=== PATIENT | male | born 1970 | race Caucasian/White ===

== ENCOUNTER → 2022-07-21 | Outpatient (CLI) | payer OTHER, SELFPAY ==
[2022-07-21 12:22] LABS: Absolute Lymphocyte Count 1.95 X10^3/uL (0.83-4.51); Absolute Neutrophil Count 2.4 X10^3/uL (2.0-7.7); Basophil# 0.01 X10^3/uL; Basophil% 0.2 % (0-1); Eosinophil# 0.08 X10^3/uL; Eosinophils% 1.6 % (0-5); Hematocrit 45.3 % (40-54); Hemoglobin 14.8 g/dL (13.0-16.5); Lymphocyte # 1.95 X10^3/ul (0.83-4.51); Lymphocyte % 39.2 % (19-41); Mean Corp Hgb Conc 32.7 g/dL (32-36); Mean Corpuscular Hgb 31.6 pg (27.0-32.0); Mean Corpuscular Volume 96.6 fL (80-94); Mean Platelet Vol. 12.4 fl (6.2-12.0); NRBC Flagged by Analyzer 0 % (0-5); Neutrophil # 2.43 X10^3/uL (2.7-7.7); Neutrophil % 48.8 % (47-70); Platelet Count 174 K/mm3 (150-450); RBC Distribution Width CV 13.4 % (11.6-14.6); RBC Distribution Width SD 47.8 fl (35.1-43.9); Red Blood Count 4.69 M/mm3 (4.6-6.2)
[2022-07-21 13:34] LABS: AST(SGOT) 12 U/L (15-37); Alanine Aminotransfer ALT/SGPT 28 U/L (16-61); Albumin, Serum 3.6 g/dL (3.2-5.0); Alkaline Phosphatase 44 U/L (45-117); Anion Gap 4 (5-15); BUN 18 mg/dL (7-18); BUN/Creat Ratio 22.9 RATIO (10-20); Chloride 107 mmol/L (98-107); Cholesterol 192 mg/dL (200); Creatinine, Serum 0.78 mg/dL (0.70-1.30); EST Glomerular Filtration Rate 109 mL/min (>60); Est Glom Filt Rate - Afr Amer 132 mL/min (>60); Globulin 3.6 g/dL (2.2-4.2); Glucose 103 mg/dL (74-106); High Density Lipoprotein 43 mg/dL; PSA,Total - Annual Screen 1.09 ng/mL (0.00-4.00); Potassium 4.5 mmol/L (3.5-5.1); Protein, Total 7.2 g/dL (6.4-8.2); Sodium Level 139 mmol/L (136-145); Triglycerides 96 mg/dL; Very Low Density Lipoprotein 19 mg/dL (5-40)
== END | disposition home or self-care (01) ==
LOC: BFHLAB 09:35
PROVIDERS: PCP Nurse Practitioner Family; Referring Provider Nurse Practitioner Family; Visit Provider Nurse Practitioner Family
DX: Z00.00 Encounter for general adult medical examination without abnormal findings (principal); Z12.5 Encounter for screening for malignant neoplasm of prostate
CPT/HCPCS: 36415; 80053; 80061; 84153; 85025; G0103

== ENCOUNTER → 2022-11-24 | Outpatient (CLI) | payer OTHER, SELFPAY ==
--- NOTE | 2022-11-24 08:51 | VDLE_ITS ---
Reason For Study: Left leg edema RIGHT LEFT CFV is compressible, spontaneous, phasic, GSV is normal. competent and demonstrates normal CFV is compressible, spontaneous, phasic, augmentation. competent, and demonstrates normal Procedure augmentation. This is a venous duplex using B-mode, color FV is compressible, spontaneous, phasic, flow and spectral Doppler. competent and demonstrates normal Exam performed in department. augmentation. A preliminary report was called and/or faxed POP V is compressible, spontaneous, phasic, to Guido FAMILY RESOURCE COORDINATOR-C. competent and demonstrates normal augmentation. T/P Trunk is compressible. PTV is compressible. LT PerV is compressible. Nonvascularized structure noted within the muscle in the popliteal space. VL/Venous Duplex US, Unilateral Interpretation Summary Deep veins of the left lower extremity are patent and compressible segmentally. There is no evidence of left lower extremity deep vein thrombosis. The left great saphenous vein chase ears patent and compressible segmentally. Nonvascularized structure noted within the muscle in the popliteal space. Ordering Physician: Abeba Lora Referring Physician: Abeba Lora Performed By: Catherine Valenzuela RVT
== END | disposition home or self-care (01) ==
PROVIDERS: PCP Nurse Practitioner Family; Referring Provider Nurse Practitioner Family; Visit Provider Nurse Practitioner Family
DX: R60.0 Localized edema (principal)
CPT/HCPCS: 93971

== ENCOUNTER 2023-09-15 08:45 | Day surgery (SDC) | payer OTHER, SELFPAY ==
[2023-09-15] VITALS (7 sets, daily range): BP systolic 118–137; BP diastolic 71–92; PULSE 61–72; RESP 16–20; TEMP 35.8–36.3; O2SAT 67–98; BMI 44.0
--- NOTE | 2023-09-15 08:51 | H&P.OPEN ---
HPI - General General Date of Service: 09/15/23 HPI Narrative MARY CASTILLO, is a 53 M who presents for a screening colonoscopy. Patient never had previous colonoscopy. Patient has bowel movements daily denies any blood. Patient denies any family history of colon cancer. Patient denies any chronic abdominal pain/nausea/vomiting/reflux. PFSH Medical History Non-smoker Home Medications ?Medication ?Instructions ?Recorded ?Last Taken ?Type NK 09/07/23 Unknown History Allergy/AdvReac Type Severity Reaction Status Date / Time No Known Allergies Allergy Verified 09/15/23 09:01 Surgical History History of tooth extraction History of vasectomy Social History household members: spouse current occupational status: employed Smoking Status: Never smoker Past Medical/Surgical History Planned Operation Planned Operative Procedure(s): CSCOPE Previous Hospitalizations/Surgeries HX Hospitalizations: No Any Problems With Anesthesia: No You/Your Family Experience Fever (Hyperthermia) With Anes: No Cholinesterase deficiency: No Cardiovascular Hx Hypertension: No Respiratory Hx Sleep Apnea: No Hx Respiratory Tract Infection/Cold (presently): No Do You Snore Loudly (louder than talking or can be heard): Yes Do You Often Feel Tired/ Fatigued/ Sleepy Dring Daytime?: No Has Anyone Observed You Stop Breathing During Sleep?: Yes Result (for STOP score): Positive Smoking Status: Never smoker Neurological Does patient have nerve stimulator: No Reproduction : No Allergies No Known Allergies Allergy (Verified 09/15/23 09:01) Discharge Is Pt Admitted From a Shelter, or a Nursing Home: No After D/C, Where Do you Plan to Go: Return Home Physical Exam Const alert, oriented x3 and no apparent distress HEENT normocephalic and head/scalp atraumatic Resp normal respiratory effort Cardio regular rate GI soft to palpation and non-tender; Negative for non-distended Palpation: Negative for guarding Extremity no clubbing, cyanosis or edema Skin no rashes or lesions noted Neuro CN's II-XII intact bilaterally Psych mental status grossly normal Assessment & Plan Assessment/Plan (1) Encounter for screening for malignant neoplasm of colon: Surgery Risks - Colonoscopy I discussed with the patient the risks of the procedure: Yes Risks Include but are not Limited To: Risks include but are not limited to: Bleeding, perforation requiring further surgery, inability to complete colonoscopy requiring barium enema.
--- NOTE | 2023-09-15 09:01 | PCM.PRE.AN2 ---
ASA Classification* ASA Classification ASA Classification: 3 Assessment & Plan Anesthesia* Anesthesia Assessment Anesthesia Assessment: Discussed sedation and/or anesthesia options, risks, benefits, and alternatives with patient/parents/legal guardian/POA. Questions invited. The patient/parents/legal guardian/POA seems to understand and agrees to proceed with anesthesia plan. Reviewed the physical assessment, medical history, allergy history and patient home medications list prior to surgery/procedure/anesthetic and documented any changes. Performed airway and anesthesia risk assessments. Anesthesia Type Anesthesia Type: MAC (*see written preanesthesia record for full assessment) Anesthesia Focused Assessment* Airway Assessment Mouth opens: >3 cm Mallampati Score: II Focused Labs Anesthesia Preop lab: CBC WBC 5.0 K/mm3 (4.4-11.0) 07/21/22 09:35 RBC 4.69 M/mm3 (4.6-6.2) 07/21/22 09:35 Hgb 14.8 g/dL (13.0-16.5) 07/21/22 09:35 Hct 45.3 % (40-54) 07/21/22 09:35 Plt Count 174 K/mm3 (150-450) 07/21/22 09:35 CHEMISTRY Potassium 4.5 mmol/L (3.5-5.1) 07/21/22 09:35 Sodium 139 mmol/L (136-145) 07/21/22 09:35 BUN 18 mg/dL (7-18) 07/21/22 09:35 Creatinine 0.78 mg/dL (0.70-1.30) 07/21/22 09:35 Glucose 103 mg/dL (74-106) 07/21/22 09:35 COAG Pre-Assessment Diagnosis/Proposed Procedure Planned Operative Procedure(s): CSCOPE Anesthesia History 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 When Was Last Pacemaker Check QUESTION #4 FULL TEXT: You/Your Family Experience fever (hyperthermia) with Anesthesia Last Oral Intake Last Oral intake: Last Oral Intake NPO since Meds taken in AM with sips of water? Meds patient instructed to take am of surgery PONV PONV - packaging operator: PONV - packaging operator Female No 09/10/23 15:44 HX of Motion Sickness No 09/10/23 15:44 HX of N/V After Surgery No 09/10/23 15:44 Non-Smoker Yes 09/10/23 15:44 Duration of Surgery greater No 09/10/23 15:44 than 60 minutes Number of Risk Factors 1 09/10/23 15:44 PONV Score Low Risk 09/10/23 15:44 Height & Weight Height & Weight: Anesthesia: Height & Weight Height 6 ft 1 in 09/07/23 08:23 Respiratory Assessment Respiratory Assessment - packaging operator: Respiratory Tract Infection Hx - packaging operator Hx Respiratory Tract Infection No 09/15/23 08:52 STOP Sleep Apnea STOP Sleep Apnea - packaging operator: STOP Sleep Apnea - packaging operator Hx Hypertension No 09/15/23 08:52 Hx Sleep Apnea No 09/15/23 08:52 CPAP BIPAP Do you snore loudly (louder Yes 09/15/23 08:52 than talking or can be heard Do you often feel tired/ No 09/15/23 08:52 fatigued/ sleepy during daytime? Has anyone observed you stop Yes 09/15/23 08:52 breathing during sleep? STOP Results Positive 09/15/23 08:52 QUESTION #5 FULL TEXT : Do you snore loudly (louder than talking or can be heard through closed doors)? 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 Specify any problems Hx of Preganancy in last 3 N/A 09/10/23 15:44 Months Nurse Filling Out Transfusion NBUCHER 09/10/23 15:44 & Questions: Date: 09/10/23 09/10/23 15:44 Time: 15:45 09/10/23 15:44 Patient unable to answer at this time (ie. confused, unrespo /Reproduction History /Reproductive History - packaging operator: /Reproductive Hx- packaging operator Hx Now No 09/15/23 08:52 Gestational Age (in weeks): EDC: Hx Hx Para Hx Section SAB No 09/10/23 15:44 Active Medications Active Medications: Current Medications Generic Name Dose Route Start Last Admin Trade Name Freq PRN Reason Stop Dose Admin Lactated Ringer's 1,000 mls @ 15 mls/hr 09/15/23 09:00 IV .Q48H STEFANIE PFSH Medical History Non-smoker Home Medications ?Medication ?Instructions ?Recorded ?Last Taken ?Type NK 09/07/23 Unknown History Allergy/AdvReac Type Severity Reaction Status Date / Time No Known Allergies Allergy Verified 09/10/23 15:43 Surgical History History of tooth extraction History of vasectomy Social History household members: spouse current occupational status: employed Smoking Status: Never smoker Review of Systems (Anesthesia) ROS Narrative System reviewed and no additional complaints, except as documented.
[2023-09-15] MEDS: Lactated Ringers 1,000 ML 15 ML IV (09:16)
--- NOTE | 2023-09-15 10:00 | COLBX_PTH ---
PATIENT: MARY CASTILLO LOC: EN U#:[id number] AGE/SX: 53/M ROOM: RE09/15/[address]: Dr. Lorna Abrams MD : 1970 BED: DIS: 09/15/2023 SPEC #: [id number] RECD: 09/15/23 13:27 STATUS: VAZQUEZ MARY #: [id number] SAKSHI: 09/15/23 10:[address]: Lorna Abrams DEPT: SURGICAL PATHOLOGY RECD BY: Elizabeth Marcelo ENTERED: 09/16/23 07:29 SP TYPE: COLON BX OTHR DR: Abeba Lora, PHOTOCOMPOSITION KEYBOARD OPERATOR-C Tissues: A - Transverse colon B - Descending colon Procedures: Surgery Specimen Level IV HEADER OPERATION: Colonoscopy with polypectomy PRE-OP DIAGNOSIS: Encounter for screening for malignant neoplasm of colon TISSUE SUBMITTED: A- Transverse colon polyp, B- Descending colon polyp MICROSCOPIC DIAGNOSIS A. Transverse colon polyp, biopsy: Tubular adenoma. B. Descending colon polyp, biopsy: Tubular adenoma. / 09/17/2023 MICROSCOPIC DESCRIPTION Slides are reviewed. GROSS DESCRIPTION A. Received in fixative is one container labeled with the patient's name and designated Transverse colon polyp. The specimen consists of one irregular fragment of light gonsalez soft tissue that measures 0.4 x 0.3 x 0.1 cm. The specimen is totally submitted in one cassette. B. Received in fixative is one container labeled with the patient's name and designated Descending colon polyp. The specimen consists of a gonsalez-pink polyp measuring 0.7 x 0.6 x 0.5cm. The presumed base is inked. The polyp is bisected and submitted entirely in one cassette. / 09/16/2023 TC:5 CPT:45856x6
--- NOTE | 2023-09-15 10:42 | OP.CCLET_ITS ---
09/15/2023 Donna Lutz Re : Colonoscopy procedure for Ladarius Fu Dear Guido This procedure was performed on Friday, September 15, 2023. My impressions and recommendations are as follows: Impressions : - One less than 5 mm polyp in the transverse colon, removed with a cold biopsy forceps. Resected and retrieved. - One 8 mm polyp in the descending colon, removed with a hot snare. Resected and retrieved. - The examination was otherwise normal on direct and retroflexion views. Recommendations : - Discharge patient to home. - Resume previous diet. - Continue present medications. - Await pathology results. - Repeat colonoscopy in 5 years for surveillance based on pathology results. My findings are described in the full procedure note, which is enclosed. If I can be of further assistance, please feel free to contact me at Doctor phone number(s): , Work: . Sincerely, MD Lorna Gibbs MD 09/15/2023 10:42:01 AM This report has been signed electronically.
--- NOTE | 2023-09-15 10:42 | OP.COLON_ITS ---
Patient Name: Ladarius Fu Procedure Date: 09/15/2023 10:04 AM Date of : 1970 Age: 53 Procedure: Colonoscopy Indications: Screening for colorectal malignant neoplasm Providers: Lorna Abrams MD Referring MD: Donna Lutz Medicines: Monitored Anesthesia Care Patient Profile: This is a 53 year old male. Last Colonoscopy: none. The patient's first colonoscopy is today. Complications: No immediate complications. Procedure: Pre-Anesthesia Assessment: - Prior to the procedure, a History and Physical was performed, and patient medications and allergies were reviewed. The patient's tolerance of previous anesthesia was also reviewed. The risks and benefits of the procedure and the sedation options and risks were discussed with the patient. All questions were answered, and informed consent was obtained. Prior Anticoagulants: The patient has taken no anticoagulant or antiplatelet agents. ASA Grade Assessment: Per anesthesia. After reviewing the risks and benefits, the patient was deemed in satisfactory condition to undergo the procedure. After I obtained informed consent, the scope was passed under direct vision. Throughout the procedure, the patient's blood pressure, pulse, and oxygen saturations were monitored continuously. The Colonoscope was introduced through the anus and advanced to the cecum, identified by appendiceal orifice and ileocecal valve. Scope In: 10:14:48 AM Scope Withdrawal Time 0 hours 14 minutes 11 seconds Scope Out: 10:36:39 AM Total Procedure Duration Time 0 hours 21 minutes 51 seconds Findings: The perianal and digital rectal examinations were normal. A less than 5 mm polyp was found in the transverse colon. The polyp was sessile. The polyp was removed with a cold biopsy forceps. Resection and retrieval were complete. An 8 mm polyp was found in the descending colon. The polyp was semi-pedunculated. The polyp was removed with a hot snare. Resection and retrieval were complete. The exam was otherwise without abnormality on direct and retroflexion views. Impression: - One less than 5 mm polyp in the transverse colon, removed with a cold biopsy forceps. Resected and retrieved. - One 8 mm polyp in the descending colon, removed with a hot snare. Resected and retrieved. - The examination was otherwise normal on direct and retroflexion views. Recommendation: - Discharge patient to home. - Resume previous diet. - Continue present medications. - Await pathology results. - Repeat colonoscopy in 5 years for surveillance based on pathology results. Procedure Code(s): --- Professional --- 71044, PT, Colonoscopy, flexible; with removal of tumor(s), polyp(s), or other lesion(s) by snare technique 13490, 59, Colonoscopy, flexible; with biopsy, single or multiple Diagnosis Code(s): --- Professional --- Z12.11, Encounter for screening for malignant neoplasm of colon D12.3, Benign neoplasm of transverse colon (hepatic flexure or splenic flexure) D12.4, Benign neoplasm of descending colon CPT copyright 2021 [employer]. All rights reserved. The codes documented in this report are preliminary and upon single stroke preformer review may be revised to meet current compliance requirements. MD Lorna Gibbs MD 09/15/2023 10:42:01 AM This report has been signed electronically. Number of Addenda: 0 Note Initiated On: 09/15/2023 10:04 AM
--- NOTE | 2023-09-15 10:42 | PCM.POST.ANE ---
Anesthesia: Postop Eval I Current Vital Signs Temperature: 97.4 F Pulse Rate: 67 Blood Pressure: 129/92 Respiratory Rate: 20 Pulse Ox: 67 Oxygen Delivery Method: Room Air Assessment Airway patent: Yes Spontaneous unlabored respirations: Yes Mental status: Awake nausea: No Vomiting: No Anesthesia Complication: No Fluid Hydration Crystalloid volume administer (ml): 400 Total IV fluid infused: 400 Progress Note Anesthesia document: Postop Eval 1 completed: Yes
--- NOTE | 2023-09-15 10:52 | POSTOPAN2_ITS ---
Anesthesia Postop Eval I Sum Postop Eval Completion status Anesthesia document: Postop Eval 1 completed: Yes Anesthesia Postop Eval I Summary Anesthesia Postop Eval I Summary: Anesthesia Postop Eval I: Assessment Summary Airway patent Yes 09/15/23 10:44 [email or web address].[email or web address] Spontaneous unlabored Yes 09/15/23 10:44 [employer].JDEF respirations Mental status Awake 09/15/23 10:44 [email or web address].[email or web address] nausea No 09/15/23 10:44 [employer].JDEF Vomiting No 09/15/23 10:44 [employer].[email or web address] Anesthesia Postop Eval I: Fluid Summary Crystalloid volume administer 400 09/15/23 10:44 [employer].JDEF (ml) Colloids volume administered ( ml) Blood Product volume administered (ml) Total IV fluid infused 400 09/15/23 10:44 [employer].JDEF Anesthesia Postop Eval I: Summary Notes Anesthesia Complication No 09/15/23 10:44 [employer].JDEF Anesthesia Complication Comment: Post-operative progress note Anesthesia: Postop Eval II Evaluation Mental status: Awake Pain Level: 0 nausea: No Vomiting: No
--- NOTE | 2023-09-15 10:52 | PCM.POSTANE2 ---
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 Spontaneous unlabored Yes 09/15/23 10:44 WEATHERSEAL [email or web address] respirations Mental status Awake 09/15/23 10:44 WEATHERSEAL TECHNICIAN.[email or web address] nausea No 09/15/23 10:44 WEATHERSEAL TECHNICIAN.[email or web address] Vomiting No 09/15/23 10:44 WEATHERSEAL TECHNICIAN.[email or web address] Anesthesia Postop Eval I: Fluid Summary Crystalloid volume administer 400 09/15/23 10:44 WEATHERSEAL TECHNICIAN.JDEF (ml) Colloids volume administered ( ml) Blood Product volume administered (ml) Total IV fluid infused 400 09/15/23 10:44 WEATHERSEAL TECHNICIAN.JDEF Anesthesia Postop Eval I: Summary Notes Anesthesia Complication No 09/15/23 10:44 WEATHERSEAL TECHNICIAN.JDEF Anesthesia Complication Comment: Post-operative progress note Anesthesia: Postop Eval II Evaluation Mental status: Awake Pain Level: 0 nausea: No Vomiting: No
== END 2023-09-15 11:23 | disposition home or self-care (01) ==
LOC: EN 08:46 → AC 08:47
PROVIDERS: PCP Nurse Practitioner Family; Referring Provider Nurse Practitioner Family; Visit Provider Surgery
PROC: 0DJD8ZZ Inspection of Lower Intestinal Tract, Via Natural or Artificial Opening Endoscopic (ICD-10-PCS; CPT 45378; principal; 2023-09-15 09:55)
DX: Z12.11 Encounter for screening for malignant neoplasm of colon (principal); K63.5 Polyp of colon; Z98.52 Vasectomy status
CPT/HCPCS: 45385; 45380; 88305; J7120; J2405

== ENCOUNTER → 2023-10-15 | Outpatient (CLI) | payer OTHER, SELFPAY | END | disposition home or self-care (01) | LOC: BFHLAB 08:56 | PROVIDERS: PCP Nurse Practitioner Family | DX: N52.9 Male erectile dysfunction, unspecified (principal) | CPT/HCPCS: 36415; 84403 ==